=== PATIENT | male | born 1990 | race Caucasian/White ===

== ENCOUNTER 2016-10-08 14:22 | Inpatient (IN) | payer OTHER ==
[2016-10-08 15:46] VITALS: BMI 22.1
--- NOTE | 2016-10-08 18:06 | HP ---
CIWA Score - CIWA Score Nausea/Vomitin-Mild Nausea/No Vomiting Muscle Tremors: 4-Moderate,w/Arms Extend Anxiety: 4-Mod. Anxious/Guarded Agitation: 4-Moderately Restless Paroxysmal Sweats: 3 Orientation: 0-Oriented Tacttile Disturbances: 0-None Auditory Disturbances: 0-None Visual Disturbances: 0-None Headache: 0-None Present CIWA-Ar Total Score: 16 Admission ROS BHS - HPI Chief Complaint: Withdrawal sx. Allergies/Adverse Reactions: Allergies Allergy/AdvReac Type Severity Reaction Status Date / Time gabapentin [From Neurontin] Allergy Severe Difficulty Verified 04/25/14 20:31 Breathing History of Present Illness: 26 y/o man with a long hx. of drug dependence is admitted for detox.Pt. has been in previous detox,denies significant drug free period. Exam Limitations: No Limitations - Ebola screening Have you traveled outside of the country in the last 21 days: No Have you had contact with anyone from an Ebola affected area: No Have you been sick,other than usual withdrawal symptoms: No Do you have a fever: No - Review of Systems Constitutional: Diaphoresis EENT: reports: No Symptoms Reported Respiratory: reports: No Symptoms reported Cardiac: reports: No Symptoms Reported GI: reports: Nausea, Abdominal cramping : reports: No Symptoms Reported Musculoskeletal: reports: No Symptoms Reported Integumentary: reports: Sweating Neuro: reports: Tremors Endocrine: reports: No Symptoms Reported Hematology: reports: No Symptoms Reported Psychiatric: reports: No Sypmtoms Reported Other Systems: Reviewed and Negative Patient History - Patient Medical History Hx Anemia: No Hx Asthma: No Hx Chronic Obstructive Pulmonary Disease (COPD): No Hx Cancer: No Hx Cardiac Disorders: No Hx Congestive Heart Failure: No Hx Hypertension: No Hx Hypercholesterolemia: No Hx Pacemaker: No HX Cerebrovascular Accident: No Hx Seizures: No Hx Dementia: No Hx Diabetes: No Hx Gastrointestinal Disorders: No Hx Liver Disease: No Hx Genitourinary Disorders: No Hx Sexually Transmitted Disorders: No Hx Renal Disease (ESRD): No Hx Thyroid Disease: No Hx Human Immunodeficiency Virus (HIV): No Hx Hepatitis C: No Hx Depression: No Hx Suicide Attempt: Yes (tried to OD on aspirin in 2007) Hx Bipolar Disorder: No Hx Schizophrenia: No - Patient Surgical History Past Surgical History: Yes Hx Neurologic Surgery: No Hx Cataract Extraction: No Hx Cardiac Surgery: No Hx Lung Surgery: No Hx Breast Surgery: No Hx Breast Biopsy: No Hx Abdominal Surgery: No Hx Appendectomy: Yes (in 2006) Hx Cholecystectomy: No Hx Genitourinary Surgery: No Hx Section: No Hx Orthopedic Surgery: No Other Surgical History: left inguinal hernia repair in 1999 Anesthesia Reaction: No - PPD History Date: 01/24/14 Results: 0.00 PPD to be Administered?: Yes - Smoking Cessation Smoking history: Current every day smoker Have you smoked in the past 12 months: Yes Aproximately how many cigarettes per day: 20 Hx Chewing Tobacco Use: No Initiated information on smoking cessation: Yes 'Breaking Loose' booklet given: 10/08/16 - Substance & Tx. History Hx Alcohol Use: No Hx Substance Use: Yes Substance Use Type: Cocaine, Tranquilizers Hx Substance Use Treatment: Yes (detox & OTP) - Substances Abused Alprazolam (Xanax) Route: Oral Frequency: Daily Amount used: 8mg Age of first use: 18 Date of Last Use: 10/07/16 Family Disease History - Family Disease History Family Disease History: Diabetes: Grandparent, [place]: Mother (MULTIPLE MYELOMA) Admission Physical Exam [facility] - Vital Signs Vital Signs: Vital Signs - 24 hr 10/08/16 15:45 Temperature 97.2 F L Pulse Rate 73 Respiratory 18 Rate Blood Pressure 131/69 - Physical General Appearance: Yes: Tremorous, Sweating, Anxious HEENTM: Yes: Within Normal Limits Respiratory: Yes: Chest Non-Tender, Lungs Clear, Normal Breath Sounds Neck: Yes: Supple Breast: Yes: Breast Exam Deferred Cardiology: Yes: Regular Rhythm, Regular Rate, S1, S2 Abdominal: Yes: Normal Bowel Sounds, Non Tender, Soft Genitourinary: Yes: Within Normal Limits Back: Yes: Within Normal Limits Musculoskeletal: Yes: Within Normal Limits Extremities: Yes: Tremors Neurological: Yes: Fully Oriented, Alert Integumentary: Yes: Diaphoresis Lymphatic: Yes: Within Normal Limits - Diagnostic (1) Methadone maintenance therapy patient Current Visit: Yes Status: Acute (2) Sedative, hypnotic or anxiolytic dependence with withdrawal, uncomplicated Current Visit: Yes Status: Acute Cleared for Admission [facility] - Detox or Rehab [facility] Level of Care: Medically Managed Detox Regimen/Protocol: Valium [facility] Breath Alcohol Content Breath Alcohol Content: 0 Urine Drug Screen - Results Drug Screen Negative: No Urine Drug Screen Results: DEMETRIUS-Cocaine, AMP-Amphetamines, BZO-Benzodiazepines, MTD-Methadone
[2016-10-08] MEDS ORDERED: IBUPROFEN 400 MG TABLET (FP) PO PRN (18:19)
[2016-10-08] MEDS ORDERED: MAG HYDROX/AL HYDROX/SIMETH 30 ML UNIT-DOSE CUP PO PRN (18:19)
[2016-10-08] MEDS ORDERED: MAGNESIUM HYDROX 2400MG/30ML ORAL SUSPENSION 30 ML CUP PO PRN (18:19)
[2016-10-08] MEDS ORDERED: NICOTINE POLACRILEX 2 MG GUM BUC PRN (18:19)
[2016-10-08] MEDS ORDERED: MENTHOL/PHENOL 1 EACH UD MM PRN (18:19)
[2016-10-08] MEDS ORDERED: diazePAM 5 MG TABLET PO PRN (18:19)
[2016-10-08] MEDS ORDERED: MAGNESIUM CITRATE 300 ML BOTTLE PO PRN (18:19)
[2016-10-08] MEDS ORDERED: P-EPHED 60MG/TRIPROLIDI 2.5MG TABLET PO PRN (18:19)
[2016-10-08] MEDS ORDERED: guaiFENesin/D-METHORPHAN HB 10 ML UNIT-DOSE CUPS PO PRN (18:19)
[2016-10-08] MEDS ORDERED: ACETAMINOPHEN 325 MG TABLET (FP) PO PRN (18:19)
[2016-10-08] MEDS ORDERED: hydrOXYzine PAMOATE 50 MG CAPSULE (FP) PO PRN (18:19)
[2016-10-08] MEDS ORDERED: diazePAM 5 MG TABLET PO ONE (18:19)
[2016-10-08] MEDS: NICOTINE 21 MG/24 HOURS TOPICAL PATCH TD SCH (19:49)
[2016-10-08] MEDS: diphenhydrAMINE HCL 50 MG CAPSULE PO PRN (22:21)
[2016-10-08] MEDS: diazePAM 5 MG TABLET PO SCH (22:21)
[2016-10-08] MEDS: THIAMINE HCL 100 MG TABLET (FP) PO SCH (22:21)
[2016-10-09] MEDS: diazePAM 5 MG TABLET PO SCH ×3 (05:36→22:17)
[2016-10-09] MEDS ORDERED: METHADONE HCL 10 MG TABLET PO SCH (09:00)
[2016-10-09 10:10] LABS: ALBUMIN 3.2 g/dl (3.4-5.0); ANION GAP 9 (8-16); CALCIUM 8.2 mg/dL (8.5-10.1); CO2 31 mmol/L (21-32); COCKROFT - GAULT 135.62; CREATININE 0.9 mg/dL (0.7-1.3); GLUCOSE,RANDOM 73 mg/dL (74-106); MCH 30.2 pg (25.7-33.7); MCHC 32.8 g/dl (32.0-35.9); MEAN CELL VOLUME 92.1 fl (80-96); MEAN PLT VOLUME 10.9 fl (7.5-11.1); PLATELET COUNT 110 K/MM3 (134-434); RDW 13.5 % (11.9-15.9); SGPT/ALT 165 U/L (12-78); WHITE BLOOD COUNT 6.5 K/mm3 (4.0-10.0)
[2016-10-09] MEDS: PRENATAL VITAMINS W/ FOLIC ACID TABLET (FP) PO SCH (10:24)
[2016-10-09] MEDS: NICOTINE 21 MG/24 HOURS TOPICAL PATCH TD SCH (10:24)
[2016-10-09] MEDS ORDERED: METHADONE HCL 10 MG TABLET ONE (10:25)
[2016-10-09] MEDS ORDERED: METHADONE HCL 40 MG DISPERSABLE TABLET ONE (10:26)
[2016-10-09] MEDS: METHADONE 40 MG, METHADONE 20 MG PO SCH (10:26)
[2016-10-09 10:42] LABS: ALK PHOS 45 U/L (45-117); BILIRUBIN,TOTAL 0.4 mg/dL (0.2-1.0); SGOT/AST 77 U/L (15-37); TOT PROT 6.4 g/dl (6.4-8.2)
--- NOTE | 2016-10-09 11:32 | EKG ---
Test Reason : Blood Pressure : / mmHG Vent. Rate : 063 BPM Atrial Rate : 063 BPM P-R Int : 144 ms QRS Dur : 096 ms QT Int : 434 ms P-R-T Axes : 031 062 056 degrees QTc Int : 444 ms NORMAL SINUS RHYTHM NORMAL ECG NO PREVIOUS ECGS AVAILABLE Confirmed by AMA HUBBARD MD ([id number]) on 10/09/2016 11:32:30 AM Referred By: Confirmed By:AMA HUBBARD MD
--- NOTE | 2016-10-09 13:11 | PN ---
S CIWA - CIWA Score Nausea/Vomitin-No Nausea/No Vomiting Muscle Tremors: 3 Anxiety: 4-Mod. Anxious/Guarded Agitation: 3 Paroxysmal Sweats: 3 Orientation: 0-Oriented Tacttile Disturbances: 0-None Auditory Disturbances: 0-None Visual Disturbances: 0-None Headache: 0-None Present CIWA-Ar Total Score: 13 BHS Progress Note (SOAP) Subjective: Anxiety,tremors,sweating,interrupted sleep,restless. Objective: 10/09/16 13:09 Vital Signs - 8 hr 10/09/16 10/09/16 06:43 09:51 Temperature 96.7 F L 96.8 F L Pulse Rate 71 75 Respiratory 18 20 Rate Blood Pressure 113/71 110/68 Laboratory Tests 10/09/16 10/09/16 10/09/16 08:00 08:00 08:00 WBC 6.5 RBC 4.43 Hgb 13.4 Hct 40.8 MCV 92.1 MCHC 32.8 RDW 13.5 Plt Count 110 L D MPV 10.9 Sodium 144 Potassium 3.8 Chloride 104 Carbon Dioxide 31 Anion Gap 9 BUN 10 D Creatinine 0.9 D Creat Clearance w eGFR > 60 Random Glucose 73 L Calcium 8.2 L Total Bilirubin 0.4 D AST 77 H D ALT 165 H D Alkaline Phosphatase 45 D Total Protein 6.4 Albumin 3.2 L D RPR Titer Nonreactive labs noted Assessment: 10/09/16 13:10 Withdrawal sx. Plan: Continue detox
[2016-10-09] MEDS: THIAMINE HCL 100 MG TABLET (FP) PO SCH (22:16)
[2016-10-09] MEDS: diphenhydrAMINE HCL 50 MG CAPSULE PO PRN (22:17)
[2016-10-09 22:51] LABS: URINE APPEARANCE CLEAR; URINE BILIRUBIN NEGATIVE (NEGATIVE); URINE BLOOD NEGATIVE (NEGATIVE); URINE COLOR STRAW; URINE GLUCOSE (UA) NEGATIVE (NEGATIVE); URINE KETONE NEGATIVE (NEGATIVE); URINE LEUK ESTERASE NEGATIVE (NEGATIVE); URINE NITRITE NEGATIVE (NEGATIVE); URINE PROTEIN NEGATIVE (NEGATIVE); URINE UROBILINOGEN NEGATIVE E.U./dl (0.2-1.0)
[2016-10-10] MEDS ORDERED: METHADONE HCL 10 MG TABLET ONE (03:23)
[2016-10-10] MEDS ORDERED: METHADONE HCL 40 MG DISPERSABLE TABLET ONE (03:23)
[2016-10-10] MEDS: METHADONE 40 MG, METHADONE 20 MG PO SCH (05:24)
[2016-10-10] MEDS: NICOTINE 21 MG/24 HOURS TOPICAL PATCH TD SCH (10:13)
[2016-10-10] MEDS: diazePAM 5 MG TABLET PO SCH ×2 (10:13→21:52)
[2016-10-10] MEDS: PRENATAL VITAMINS W/ FOLIC ACID TABLET (FP) PO SCH (10:13)
--- NOTE | 2016-10-10 10:33 | PN ---
[facility] CIWA - CIWA Score Nausea/Vomitin-No Nausea/No Vomiting Muscle Tremors: 3 Anxiety: 4-Mod. Anxious/Guarded Agitation: 4-Moderately Restless Paroxysmal Sweats: 3 Orientation: 0-Oriented Tacttile Disturbances: 0-None Auditory Disturbances: 0-None Visual Disturbances: 0-None Headache: 0-None Present CIWA-Ar Total Score: 14 BHS Progress Note (SOAP) Subjective: Anxiety,tremors,sweating,interrupted sleep,restless Objective: 10/10/16 10:32 Vital Signs - 8 hr 10/10/16 10/10/16 10/10/16 03:30 06:47 09:50 Temperature 98.0 F 97.1 F L Pulse Rate 104 H 96 H Respiratory 18 18 20 Rate Blood Pressure 118/77 123/83 Laboratory Last Values WBC 6.5 K/mm3 (4.0-10.0) 10/09/16 08:00 RBC 4.43 M/mm3 (4.00-5.60) 10/09/16 08:00 Hgb 13.4 GM/dL (11.7-16.9) 10/09/16 08:00 Hct 40.8 % (35.4-49) 10/09/16 08:00 MCV 92.1 fl (80-96) 10/09/16 08:00 MCHC 32.8 g/dl (32.0-35.9) 10/09/16 08:00 RDW 13.5 % (11.9-15.9) 10/09/16 08:00 Plt Count 110 K/MM3 (134-434) L D 10/09/16 08:00 MPV 10.9 fl (7.5-11.1) 10/09/16 08:00 Sodium 144 mmol/L (136-145) 10/09/16 08:00 Potassium 3.8 mmol/L (3.5-5.1) 10/09/16 08:00 Chloride 104 mmol/L (98-107) 10/09/16 08:00 Carbon Dioxide 31 mmol/L (21-32) 10/09/16 08:00 Anion Gap 9 (8-16) 10/09/16 08:00 BUN 10 mg/dL (7-18) D 10/09/16 08:00 Creatinine 0.9 mg/dL (0.7-1.3) D 10/09/16 08:00 Creat Clearance w eGFR > 60 (>60) 10/09/16 08:00 Random Glucose 73 mg/dL (74-106) L 10/09/16 08:00 Calcium 8.2 mg/dL (8.5-10.1) L 10/09/16 08:00 Total Bilirubin 0.4 mg/dL (0.2-1.0) D 10/09/16 08:00 AST 77 U/L (15-37) H D 10/09/16 08:00 ALT 165 U/L (12-78) H D 10/09/16 08:00 Alkaline Phosphatase 45 U/L (45-117) D 10/09/16 08:00 Total Protein 6.4 g/dl (6.4-8.2) 10/09/16 08:00 Albumin 3.2 g/dl (3.4-5.0) L D 10/09/16 08:00 Urine Color Straw 10/09/16 22:00 Urine Appearance Clear 10/09/16 22:00 Urine pH 7.0 (5.0-8.0) 10/09/16 22:00 Ur Specific [place] 1.009 (1.001-1.035) 10/09/16 22:00 Urine Protein Negative (NEGATIVE) 10/09/16 22:00 Urine Glucose (UA) Negative (NEGATIVE) 10/09/16 22:00 Urine Ketones Negative (NEGATIVE) 10/09/16 22:00 Urine Blood Negative (NEGATIVE) 10/09/16 22:00 Urine Nitrite Negative (NEGATIVE) 10/09/16 22:00 Urine Bilirubin Negative (NEGATIVE) 10/09/16 22:00 Urine Urobilinogen Negative E.U./dl (0.2-1.0) 10/09/16 22:00 Ur Leukocyte Esterase Negative (NEGATIVE) 10/09/16 22:00 RPR Titer Nonreactive (NONREACTIVE) 10/09/16 08:00 labs noted Assessment: 10/10/16 10:32 Withdrawal sx. Plan: Continue detox
[2016-10-10] MEDS: THIAMINE HCL 100 MG TABLET (FP) PO SCH (21:52)
[2016-10-11] MEDS ORDERED: METHADONE HCL 10 MG TABLET ONE (04:44)
[2016-10-11] MEDS ORDERED: METHADONE HCL 40 MG DISPERSABLE TABLET ONE (04:45)
[2016-10-11] MEDS: METHADONE 40 MG, METHADONE 20 MG PO SCH (05:28)
[2016-10-11] MEDS: diazePAM 5 MG TABLET PO SCH ×2 (10:18→22:43)
[2016-10-11] MEDS: PRENATAL VITAMINS W/ FOLIC ACID TABLET (FP) PO SCH (10:18)
[2016-10-11] MEDS: NICOTINE 21 MG/24 HOURS TOPICAL PATCH TD SCH (10:19)
--- NOTE | 2016-10-11 17:22 | PN ---
BHS Progress Note (SOAP) Subjective: Sweating,interrupted sleep,restless Objective: 10/11/16 17:21 Vital Signs - 8 hr 10/11/16 10/11/16 09:46 13:42 Temperature 96.2 F L 98.3 F Pulse Rate 79 118 H Respiratory 18 20 Rate Blood Pressure 127/82 124/79 Laboratory Tests 10/09/16 10/09/16 10/09/16 08:00 08:00 08:00 WBC 6.5 RBC 4.43 Hgb 13.4 Hct 40.8 MCV 92.1 MCHC 32.8 RDW 13.5 Plt Count 110 L D MPV 10.9 Sodium 144 Potassium 3.8 Chloride 104 Carbon Dioxide 31 Anion Gap 9 BUN 10 D Creatinine 0.9 D Creat Clearance w eGFR > 60 Random Glucose 73 L Calcium 8.2 L Total Bilirubin 0.4 D AST 77 H D ALT 165 H D Alkaline Phosphatase 45 D Total Protein 6.4 Albumin 3.2 L D Urine Color Urine Appearance Urine pH Ur Specific [place] Urine Protein Urine Glucose (UA) Urine Ketones Urine Blood Urine Nitrite Urine Bilirubin Urine Urobilinogen Ur Leukocyte Esterase RPR Titer Nonreactive 10/09/16 22:00 WBC RBC Hgb Hct MCV MCHC RDW Plt Count MPV Sodium Potassium Chloride Carbon Dioxide Anion Gap BUN Creatinine Creat Clearance w eGFR Random Glucose Calcium Total Bilirubin AST ALT Alkaline Phosphatase Total Protein Albumin Urine Color Straw Urine Appearance Clear Urine pH 7.0 Ur Specific [place] 1.009 Urine Protein Negative Urine Glucose (UA) Negative Urine Ketones Negative Urine Blood Negative Urine Nitrite Negative Urine Bilirubin Negative Urine Urobilinogen Negative Ur Leukocyte Esterase Negative RPR Titer labs noted Assessment: 10/11/16 17:21 Withdrawal sx. Plan: Continue detox
[2016-10-11] MEDS: LOPERAMIDE HCL 2 MG CAPSULE PO PRN (22:43)
[2016-10-11] MEDS: THIAMINE HCL 100 MG TABLET (FP) PO SCH (22:43)
[2016-10-12] MEDS ORDERED: METHADONE HCL 10 MG TABLET ONE (03:44)
[2016-10-12] MEDS ORDERED: METHADONE HCL 40 MG DISPERSABLE TABLET ONE (03:44)
[2016-10-12] MEDS: METHADONE 40 MG, METHADONE 20 MG PO SCH (05:17)
[2016-10-12] MEDS: LOPERAMIDE HCL 2 MG CAPSULE PO PRN (05:17)
[2016-10-12 06:29] VITALS: TEMP 97.4
--- NOTE | 2016-10-12 09:17 | DS ---
[facility] Detox Discharge Summary Admission Date: 10/08/16 Discharge Date: 10/12/16 - History Present History: Sedative Dependence, MMTP Pertinent Past History: Denies - Physical Exam Results Vital Signs: Vital Signs Temperature 97.4 F L 10/12/16 06:28 Pulse Rate 112 H 10/12/16 06:28 Respiratory Rate 16 10/12/16 06:28 Blood Pressure 108/78 10/12/16 06:28 O2 Sat by Pulse Oximetry (%) Pertinent Admission Physical Exam Findings: Withdrawal sx. Laboratory Last Values WBC 6.5 K/mm3 (4.0-10.0) 10/09/16 08:00 RBC 4.43 M/mm3 (4.00-5.60) 10/09/16 08:00 Hgb 13.4 GM/dL (11.7-16.9) 10/09/16 08:00 Hct 40.8 % (35.4-49) 10/09/16 08:00 MCV 92.1 fl (80-96) 10/09/16 08:00 MCHC 32.8 g/dl (32.0-35.9) 10/09/16 08:00 RDW 13.5 % (11.9-15.9) 10/09/16 08:00 Plt Count 110 K/MM3 (134-434) L D 10/09/16 08:00 MPV 10.9 fl (7.5-11.1) 10/09/16 08:00 Sodium 144 mmol/L (136-145) 10/09/16 08:00 Potassium 3.8 mmol/L (3.5-5.1) 10/09/16 08:00 Chloride 104 mmol/L (98-107) 10/09/16 08:00 Carbon Dioxide 31 mmol/L (21-32) 10/09/16 08:00 Anion Gap 9 (8-16) 10/09/16 08:00 BUN 10 mg/dL (7-18) D 10/09/16 08:00 Creatinine 0.9 mg/dL (0.7-1.3) D 10/09/16 08:00 Creat Clearance w eGFR > 60 (>60) 10/09/16 08:00 Random Glucose 73 mg/dL (74-106) L 10/09/16 08:00 Calcium 8.2 mg/dL (8.5-10.1) L 10/09/16 08:00 Total Bilirubin 0.4 mg/dL (0.2-1.0) D 10/09/16 08:00 AST 77 U/L (15-37) H D 10/09/16 08:00 ALT 165 U/L (12-78) H D 10/09/16 08:00 Alkaline Phosphatase 45 U/L (45-117) D 10/09/16 08:00 Total Protein 6.4 g/dl (6.4-8.2) 10/09/16 08:00 Albumin 3.2 g/dl (3.4-5.0) L D 10/09/16 08:00 Urine Color Straw 10/09/16 22:00 Urine Appearance Clear 10/09/16 22:00 Urine pH 7.0 (5.0-8.0) 10/09/16 22:00 Ur Specific [place] 1.009 (1.001-1.035) 10/09/16 22:00 Urine Protein Negative (NEGATIVE) 10/09/16 22:00 Urine Glucose (UA) Negative (NEGATIVE) 10/09/16 22:00 Urine Ketones Negative (NEGATIVE) 10/09/16 22:00 Urine Blood Negative (NEGATIVE) 10/09/16 22:00 Urine Nitrite Negative (NEGATIVE) 10/09/16 22:00 Urine Bilirubin Negative (NEGATIVE) 10/09/16 22:00 Urine Urobilinogen Negative E.U./dl (0.2-1.0) 10/09/16 22:00 Ur Leukocyte Esterase Negative (NEGATIVE) 10/09/16 22:00 RPR Titer Nonreactive (NONREACTIVE) 10/09/16 08:00 labs noted - Treatment Hospital Course: Detox Protocol Followed, Detoxed Safely, Responded well, Discharged Condition Good, Rehab Referral Accepted Patient has Accepted a Rehab Referral to: [facility] rehab - Medication Discharge Medications: Ambulatory Orders Trazodone HCl [Desyrel -] 100 mg PO HS #30 tablet 04/27/14 - Diagnosis (1) Methadone maintenance therapy patient Current Visit: Yes Status: Acute (2) Sedative, hypnotic or anxiolytic dependence with withdrawal, uncomplicated Current Visit: Yes Status: Acute - AMA Did Patient Leave Against Medical Advice: No
[2016-10-12 09:23] VITALS: BP 111/79; PULSE 97
[2016-10-12] MEDS ORDERED: diazePAM 5 MG TABLET PO SCH (10:00)
[2016-10-12] MEDS: NICOTINE 21 MG/24 HOURS TOPICAL PATCH TD SCH (10:23)
[2016-10-12] MEDS: PRENATAL VITAMINS W/ FOLIC ACID TABLET (FP) PO SCH (10:23)
== END 2016-10-12 10:55 | disposition home or self-care (01) | DRG 773 ==
LOC: YASAS 14:22 → Y3N 17:24
PROVIDERS: ADMIT Internal Medicine; ATTEND Internal Medicine
PROC: HZ2ZZZZ Detoxification Services for Substance Abuse Treatment (ICD-10-PCS; principal; 2016-10-12)
DX: F11.20 Opioid dependence, uncomplicated (principal); F13.230 Sedative, hypnotic or anxiolytic dependence with withdrawal, uncomplicated
CPT/HCPCS: 36415; 80053; 81003; 85027; 86593; 93005; 93010